=== PATIENT | male | born 2000 | race Caucasian/White ===

== ENCOUNTER 2024-01-05 02:56 | Emergency (ER) | payer MEDICAID, SELFPAY ==
[2024-01-05 02:59] VITALS: BP 164/96; PULSE 98; RESP 18; TEMP 36.8; O2SAT 100
--- NOTE | 2024-01-05 03:02 | ED.GENADUL_ITS ---
Discharge Plan Disposition Patient Disposition: Home Condition: Good Discharge Details Clinical Impression: Stomatitis ED Provider: Jim Goodrich Home Meds and New Rx's Prescriptions: No Action No Known Home Meds Discharge Instructions Instructions: Mouth sores Additional Instructions: These sores are likely related to a respiratory viruses but we have swabbed you for herpes virus. Stay hydrated, use acetaminophen or Motrin for fever and pain if needed, Cepacol lozenges would also help with mouth and throat pain. Follow- up with primary care next week if not improving. Return to ED for any difficulty breathing, inability to swallow, other concerns. HPI General Mode of arrival: ambulatory . Date/Time Provider Initiated Documentation: 01/05/24 03:02 . Limitations to Documentation: no limitations . Information obtained by: patient and RN notes reviewed . HPI Narrative: Patient presents to ED with complaint of mouth and tongue sores. First noticed Wednesday evening, about 36 hours ago. Initially seemed to be on the front portion of his tongue. Now seems to be traveling back. They are somewhat painful though not severe. Has a little bit of a cough and runny nose but does not really feel sick otherwise. He is not having difficulty swallowing or breathing. Denies any fever. Denies any rashes elsewhere. He is otherwise healthy and has never had anything similar to this in the past. He is somewhat concerned regarding potential herpes. Related Data Home Medications ?Medication ?Instructions ?Recorded ?Confirmed Unknown [No Known Home Meds] 01/05/24 01/05/24 Allergies Allergy/AdvReac Type Severity Reaction Status Date / Time No Known Allergies Allergy Verified 01/05/24 03:07 Review of Systems Narrative: Per HPI Exam Narrative Exam Narrative: Const: WDWN male in NAD. VS per triage. HEENT: NC/AT. Normal facial exam. TMs clear bilaterally. Oropharynx with a few discrete sores on the sides of the tongue, slight sloughing of the buccal mucosa. Posterior oropharynx is normal. Palate appears normal. Neck: Supple. Trachea midline. Lungs: Normal respiratory effort. Neuro: A+O x 3. Normal speech, mentation, gait. Cranial nerves II - XII grossly intact. No gross motor or sensory deficit. Medical Decision Making Patient presenting with mouth sores originally on the front portion of the tongue now involving back of the tongue. Has some sloughing of buccal mucosa. No evidence of thrush. Likely respiratory virus with stomatitis but patient has concern for herpes. HSV swab obtained and sent. Symptomatic management discussed. Return precautions discussed. PFSH All Active Problems Stomatitis (Acute) Medical History No significant past medical history Surgical History No significant past surgical history Social History Smoking/Tobacco Use Status: Current every day Tobacco Type: e-cigarettes Smoking risk assessment performed?: Yes Alcohol Intake: never Drug use: Occasionally Substance use type: marijuana Housing: apartment Do you feel safe at home: Yes Do you feel safe in your relationship?: Yes
[2024-01-05 03:03] VITALS: BP 164/96; PULSE 98; RESP 18; TEMP 36.8; O2SAT 100
[2024-01-06 15:19] LABS: HSV 1 DNA Result Negative (Negative); HSV 2 DNA Result Negative (Negative)
== END 2024-01-05 03:29 | disposition home or self-care (01) ==
LOC: ER 03:49
PROVIDERS: Emergency Provider Emergency Medicine
DX: K12.1 Other forms of stomatitis (principal); R07.0 Pain in throat
CPT/HCPCS: 87529; 99282; 99283

== ENCOUNTER 2024-03-09 22:46 | Emergency (ER) | payer MEDICAID, SELFPAY ==
[2024-03-09 22:48] VITALS: BP 165/70; PULSE 88; RESP 18; TEMP 36.4; O2SAT 100
--- OUTSIDE RECORDS SUMMARY | 2024-03-09 23:21 | XMS_ITS | Referral Summary ---
Author Organization [facility] Address [address] [place] [address] Care Team Providers Care Relief Man Name Role Phone Unavailable Primary Care Provider Unavailabl e Encounters Date Type Department Care Team Description 01/05/2024 Lab Requisition [facility] Pathology & Laboratory Medicine - [facility] [address] [place] [address] Outr Resulting Lab, Provider from Last 3 Months Social History Tobacco Use Types Packs/Day Years Used Date Smoking Tobacco: Never Assessed Sex and Gender Information Value Date Recorded Sex Assigned at Not on file Legal Sex Male 12:35 EDT Gender Identity Not on file Sexual Orientation Not on file Plan of Treatment Not on file Procedures Procedure Name Priority Date/Time Associated Diagnosis Comments HSV (HERPES SIMPLEX VIRUS) MOLECULAR DETECTION, PCR Routine 01/05/2024 3:27 EDT from Last 3 Months Results * HSV (HERPES SIMPLEX VIRUS) MOLECULAR DETECTION, PCR (01/05/2024 3:27 EDT) Herpes Simplex Virus Molecular Detection 1, PCR Negative Negative 01/06/2024 15:13 EDT [facility] Herpes Simplex Virus Molecular Detection 2, PCR Negative Negative 01/06/2024 15:13 EDT [facility] Swab FLOOR OF MOUTH STRUCTURE / Unknown 01/05/2024 3:27 EDT 01/05/2024 17:07 EDT us Provider Outr Resulting Lab MICROBIOLOGY - GENER AL ORDERABLES Final Result [facility] [address] [place] [address] from Last 3 Months
--- OUTSIDE RECORDS SUMMARY | 2024-03-09 23:21 | XMS_ITS | Clinical Summary ---
Author Organization [facility] Address [address] [place] [address] Care Team Providers Care Head Cook Name Role Phone Unavailable Primary Care Provider Unavailabl e Encounters Date Type Department Care Team Description 01/05/2024 Lab Requisition [facility] Pathology & Laboratory Medicine - [facility] [address] [place] [address] Outr Resulting Lab, Provider from Last 3 Months Social History Tobacco Use Types Packs/Day Years Used Date Smoking Tobacco: Never Assessed Sex and Gender Information Value Date Recorded Sex Assigned at Not on file Legal Sex Male 12:35 EDT Gender Identity Not on file Sexual Orientation Not on file Plan of Treatment Health Maintenance Due Date Last Done Comments Hepatitis C Screen 1999 Hepatitis B Vaccine (1 of 3 - 19+ 3-dose series) 04/11 COVID-19 Vaccine ( season) 2023 Procedures Procedure Name Priority Date/Time Associated Diagnosis Comments HSV (HERPES SIMPLEX VIRUS) MOLECULAR DETECTION, PCR Routine 01/05/2024 3:27 EDT from Last 3 Months Results * HSV (HERPES SIMPLEX VIRUS) MOLECULAR DETECTION, PCR (01/05/2024 3:27 EDT) Herpes Simplex Virus Molecular Detection 1, PCR Negative Negative 01/06/2024 15:13 EDT [facility] Herpes Simplex Virus Molecular Detection 2, PCR Negative Negative 01/06/2024 15:13 EDT [facility] Swab FLOOR OF MOUTH STRUCTURE / Unknown 01/05/2024 3:27 EDT 01/05/2024 17:07 EDT us Provider Outr Resulting Lab MICROBIOLOGY - GENER AL ORDERABLES Final Result [facility] [address] [place] [address] from Last 3 Months
--- OUTSIDE RECORDS SUMMARY | 2024-03-09 23:21 | XMS_ITS | Encounter Summary ---
Author Organization [facility] Address [address] [place] [address] Care Team Providers Care Template Storage Clerk Name Role Phone Unavailable Primary Care Provider Unavailabl e Encounter Details Date Type Department Care Team (Late st Contact Info) Description 01/05/2024 Lab Requisition [facility] Pathology & Laboratory Medicine - [facility] [place] [address], [place] [address] Outr Resulting Lab, Provider Social History Tobacco Use Types Packs/Day Years Used Date Smoking Tobacco: Never Assessed Sex and Gender Information Value Date Recorded Sex Assigned at Not on file Legal Sex Male 12:35 EDT Gender Identity Not on file Sexual Orientation Not on file documented as of this encounter Plan of Treatment Not on file documented as of this encounter Procedures Procedure Name Priority Date/Time Associated Diagnosis Comments HSV (HERPES SIMPLEX VIRUS) MOLECULAR DETECTION, PCR Routine 01/05/2024 3:27 EDT documented in this encounter Results * HSV (HERPES SIMPLEX VIRUS) MOLECULAR DETECTION, PCR (01/05/2024 3:27 EDT) Herpes Simplex Virus Molecular Detection 1, PCR Negative Negative 01/06/2024 15:13 EDT [facility] Herpes Simplex Virus Molecular Detection 2, PCR Negative Negative 01/06/2024 15:13 EDT [facility] Swab FLOOR OF MOUTH STRUCTURE / Unknown 01/05/2024 3:27 EDT 01/05/2024 17:07 EDT us Provider Outr Resulting Lab MICROBIOLOGY - GENER AL ORDERABLES Final Result [facility] [address] [place] [address] documented in this encounter Visit Diagnoses Not on filedocumented in this encounter
--- NOTE | 2024-03-09 23:29 | W.ED.GENAD ---
Discharge Plan Disposition Patient Disposition: Home Condition: Improving Discharge Details Clinical Impression: Sinusitis Primary Care Provider: None,None ED Provider: Nilton Orourke Home Meds and New Rx's Prescriptions: New amoxicillin-pot clavulanate 875-125 mg tablet 1 tab PO BID Qty: 20 0RF Discharge Instructions Instructions: Sinusitis, Adult ED Additional Instructions: Take 1 Augmentin tablet every 12 hours for the next 10 days. You can take two or three 200 mg ibuprofen tablets every 6 hours as needed for symptoms of facial pain or fevers. You can take 25 to 50 mg of oral diphenhydramine (Benadryl) every 6 hours as needed for symptoms of nasal discharge. This medication will dry out your sinuses and prevent some of the postnasal drip. If you take it before bed it should help with coughing at night. You can always return to the ER for any new concerns or sudden changes in your health which you feel require emergency medical attention HPI General Date/Time Provider Initiated Documentation: 03/09/24 22:50. HPI Narrative: The patient is a 23-year-old male, with a past medical history significant for recurrent right-sided otitis media and a tympanostomy tube in the right ear, who presents the emergency department this evening complaining of 4 days of upper respiratory tract infection symptoms, which are predominantly nasal congestion, facial discomfort, posterior nasal drip, and coughing due to the strip. The patient reports that he coughed up some blood-tinged mucus this evening and it concerned him so he came to the emergency room for evaluation. The patient reports that his throat is sore, and he thinks that it is both a combination of the infection and the ongoing coughing. The patient also tells me that he is concerned that he has diabetes. He is concerned about this because he lost feeling in the lateral aspect of his left fifth toe. The patient vapes routinely, but reports no shortness of breath at this time. Related Data Home Medications ?Medication ?Instructions ?Recorded ?Confirmed amoxicillin 875 mg-potassium 1 tab PO BID #20 tabs 03/09/24 clavulanate 125 mg tablet Previous Rx's ?Medication ?Instructions ?Recorded amoxicillin 875 mg-potassium 1 tab PO BID #20 tabs 03/09/24 clavulanate 125 mg tablet Allergies Allergy/AdvReac Type Severity Reaction Status Date / Time No Known Allergies Allergy Verified 03/09/24 22:51 General Stated Complaint: RespSymp KELLEE: 4 Exam Const General: cooperative, healthy appearing, comfortable and no acute distress [facility] Head: normal to inspection, normocephalic and atraumatic Ears: external ears normal, TM's normal bilaterally and other (Visualize tympanostomy tube in the right ear) General nose exam: external nose normal, mucous membranes and turbinates abnormal boggy and erythematous and nasal discharge bloody and other (yellow) Mouth: other (Posterior oropharynx is erythematous w/o lesions, surgically absent tonsill) Neck Neck: normal visual inspection, full ROM and no lymphadenopathy Resp Effort & Inspection: normal respiratory effort and able to speak in complete sentences Auscultation: clear to auscultation bilaterally Cardio Rate: regular rate Rhythm: regular rhythm Heart Sounds: S1 normal and S2 normal Neuro General: patient alert, patient awake, patient oriented x3, moves all extremities and CN's II-XI intact bilaterally Course Vital Signs Vital signs: Vital Signs Temperature 36.4 C 03/09/24 22:48 Pulse 88 03/09/24 22:48 Respiratory Rate 18 03/09/24 22:48 Blood Pressure 165/70 H 03/09/24 22:48 Pulse Oximetry 100 03/09/24 22:48 Temperature 36.4 C 03/09/24 22:48 Temperature Source Temporal Artery Scan 03/09/24 22:48 Pulse 88 03/09/24 22:48 Respiratory Rate 18 03/09/24 22:48 Respiratory Effort Normal 03/09/24 23:00 Respiratory Depth Normal 03/09/24 23:00 Blood Pressure 165/70 H 03/09/24 22:48 Blood Pressure Position Sitting 03/09/24 22:48 Pulse Oximetry 100 03/09/24 22:48 Oxygen Delivery Method Room Air 03/09/24 22:48 Oxygen Flow Rate 0 03/09/24 22:48 Pain Level 0 03/09/24 22:48 Medical Decision Making The patient was seen and examined. He does have quite swollen and erythematous nasal mucosa bilaterally. There is a yellowish discharge with some bloody tinge within it. The patient likely does have a significant rhinitis, and could potentially have an early developing sinusitis. The patient is looking for antibiotics because he is hoping to prevent getting a recurrent otitis media in the right ear. The patient will have a viral swab obtained to see if this is COVID or influenza A, given the recent uptake and influenza in the community. If the viral panel is negative, I will provide the patient with some aminopenicillin based antibiotics for prevention of otitis media in the right ear. Quality:SDOH Health Related Social Needs: No Data to Display PFSH All Active Problems (Updated 03/09/24 @ 23:41 by Nilton Orourke MD) Sinusitis (Acute) Medical History No significant past medical history Surgical History No significant past surgical history Social History Smoking/Tobacco Use Status: Current every day Tobacco Type: e-cigarettes Smoking risk assessment performed?: Yes Alcohol Intake: never Drug use: Occasionally Substance use type: marijuana Housing: apartment Do you feel safe at home: Yes Do you feel safe in your relationship?: Yes
[2024-03-09 23:33] LABS: COVID-19 PCR Negative (Negative); Influenza A PCR Negative (Negative); Influenza B PCR Negative (Negative); RSV PCR Negative (Negative)
[2024-03-09 23:34] LABS: Source Nasopharynx
[2024-03-09] MEDS: Amoxicillin 875/Clav. 125 TAB PO (23:46)
== END 2024-03-09 23:48 | disposition home or self-care (01) ==
PROVIDERS: Emergency Provider Emergency Medicine Emergency Medical Services
DX: J01.90 Acute sinusitis, unspecified (principal); F17.290 Nicotine dependence, other tobacco product, uncomplicated
CPT/HCPCS: 82962; 87637; 99283